=== PATIENT | male | born 1955 | race Caucasian/White ===

== ENCOUNTER 2023-09-05 08:04 | Outpatient (RCR) | payer MEDICARE, OTHER, SELFPAY | END 2023-09-27 16:17 | disposition home or self-care (01) | LOC: PT 08:04 | PROVIDERS: PCP Family Medicine; Visit Provider Family Medicine | DX: M54.12 Radiculopathy, cervical region (principal); R51.9 Headache, unspecified; M25.511 Pain in right shoulder | CPT/HCPCS: 97012; 97110; 97140; 97161 ==